=== PATIENT | male | born 1995 | race Caucasian/White ===

== ENCOUNTER → 2019-03-04 | Day surgery (SDC) | payer OTHER ==
[~2019-03-04] MED LIST: FENTANYL CITRATE/PF 100MCG/2 ML INJ ONE; LIDOCAINE HCL 2% LOCAL INJ 5 ML SDV VIAL INJ ONE; MIDAZOLAM HCL 2 MG/2 ML VIAL ONE; OMEPRAZOLE20 MG PO; PROPOFOL IV EMULSION 10 MG/ML 20 ML VIAL ONE; SUCRALFATE1 GM PO
--- OUTSIDE RECORDS SUMMARY | 2019-03-04 14:12 | XMS REPORT ---
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 Allergies, Adverse Reactions, Alerts Allergy Name Allergy Type Status Severity Reaction(s) Onset Date Inactive Date Treating Clinician Comments No Known Allergies DA Active U 2019-02-25 00:00:00 No Known Contrast Allergies DA Active U 2008-07-19 00:00:00 No Known Drug Allergies DA Active U 2008-07-19 00:00:00 No Known Food Allergies DA Active U 2008-07-19 00:00:00 No Known Other Allergies DA Active U 2008-07-19 00:00:00 Medications This patient has no known medications. Results Test Description Test Time Test Comments Text Results Atomic Results Result Comments URINALYSIS COMPLETE 2019-02-25 19:54:00 UA COLOR (test code=COLU) LIGHT YELLOW YELLOW UA APPEARANCE (test code=APPU) CLEAR CLEAR UA GLUCOSE DIPSTICK (test code=DGLUU) norm mg/dL NEGATIVE UA BILIRUBIN DIPSTICK (test code=BILU) NEGATIVE mg/dL NEGATIVE UA KETONE DIPSTICK (test code=KETU) neg mg/dL NEGATIVE UA SPECIFIC GRAVITY (test code=SGU) 1.005 1.001-1.035 UA BLOOD DIPSTICK (test code=TIERA) neg Juan/uL NEGATIVE UA PH DIPSTICK (test code=ALMA) 8.0 5.0-8.0 UA PROTEIN DIPSTICK (test code=PROU) neg mg/dL Neg-15 UA UROBILINIOGEN DIPSTICK (test code=URO) norm mg/dL 0.0-0.2 UA NITRITE DIPSTICK (test code=DIANE) NEGATIVE NEGATIVE UA LEUKOCYTE ESTERASE DIPSTICK (test code=LEUU) neg uL NEGATIVE UA WBC (test code=WBCU) NONE SEEN per HPF 0-5 UA RBC (test code=RBCU) NONE SEEN per HPF 0-5 UA EPITHELIAL CELLS (test code=EPIU) Rare (0-1/hpf) per HPF Few UA BACTERIA (test code=BACU) TRACE per HPF NONE Urine Source? Clean [id number] 19:45:00* Test Item Value Reference Range Comments D-DIMER (test code=DDIMER) < 100 ng/ml < 600 ADD [id number] 19:45:00* Test Item Value Reference Range Comments MAGNESIUM (test code=MAG) 2.1 mg/dL 1.6-2.3 ADD [id number] 19:45:00* Test Item Value Reference Range Comments TROPONIN-I (test code=TROPI) <0.015 ng/mL 0.00-0.056 ADD ON- XR CHEST 1 [id number] 19:39:00 Name: BENEDICTBRYCE A [facility] : 1995 Age/S:23 /M [address] [facility] Unit#:[id number] Loc: [place] [address] Phys: Abdias Rebollar MD Dis Date: PHONE #: [phone] Status: REG ER FAX #: [phone] Exam Date: 02/25/2019 Reason: CP EXAMS: CPT CODE: [id number] XR CHEST 1 V [id number] REASON FOR EXAM: CP EXAM ORDER DATE: 02/25/2019 7:24 PM Ordering MGloria: Abdias Rebollar MD PROCEDURE: - XR CHEST 1 V COMPARISON: FINDINGS: Portable AP frontal view of the chest obtained at 7:36 PM shows clear lungs without evidence of consolidation. There is no evidence of effusion. The heart size is within normal limits. Pulmonary vasculatures are unremarkable. IMPRESSION: No active disease. at 1941 Reported and signed by: Keshav Nunez M.D. CC: Jj Hanna DO; Abdias Rebollar MD Technologist: JANE MORA RT(R),RDMS,CT Trnscrpt Data: 02/25/2019 (193) t.BALDOMERO R.VTL Orig Print D/T: S: 02/25/2019 (1941) PAGE 1 Signed Report COMPREHENSIVE METABOLIC [id number] 19:36:00* Test Item Value Reference Range Comments SODIUM (test code=NA) 139 mmol/L 136-145 POTASSIUM (test code=K) 3.8 mmol/L 3.5-5.1 CHLORIDE (test code=CL) 102 mmol/L 101-109 CARBON DIOXIDE (test code=CO2) 26.9 mmol/L 21-32 ANION GAP (test code=GAP) 14 mmol/L 10-20 GLUCOSE (test code=GLU) 104 mg/dL 74-106 BLOOD UREA NITROGEN (test code=BUN) 14 mg/dL 3-21 CREATININE (test code=CREAT) 0.90 mg/dL 0.55-1.3 BUN/CREATININE RATIO (test code=BUN/CREA) 15.6 10-20 TOTAL PROTEIN (test code=PROT) 8.4 g/dL 6.5-8.4 ALBUMIN (test code=ALB) 5.1 g/dL 3.4-4.8 GLOBULIN (test code=GLOB) 3.3 G/DL 1-10 ALBUMIN/GLOBULIN RATIO (test code=A/G) 1.55 RATIO 0.75-1.50 CALCIUM (test code=CA) 9.3 mg/dL 8.4-10.2 BILIRUBIN TOTAL (test code=BILT) 0.90 mg/dL 0.0-1.0 SGOT/AST (test code=AST) 18 U/L 6-32 SGPT/ALT (test code=ALT) 29 U/L 12-78 Note: Change in REFERENCE RANGE due to new reagent method. ALKALINE PHOSPHATASE TOTAL (test code=ALKP) 66 U/L 38-126 [id number] 19:36:00* Test Item Value Reference Range Comments LIPASE (test code=LIP) 143 U/L 128-270 COMPREHENSIVE METABOLIC [id number] 19:23:00* Test Item Value Reference Range Comments SODIUM (test code=NA) 139 mmol/L 136-145 POTASSIUM (test code=K) 3.8 mmol/L 3.5-5.1 CHLORIDE (test code=CL) 102 mmol/L 101-109 CARBON DIOXIDE (test code=CO2) mmol/L 21-32 ANION GAP (test code=GAP) mmol/L 10-20 GLUCOSE (test code=GLU) 104 mg/dL 74-106 BLOOD UREA NITROGEN (test code=BUN) 14 mg/dL 3-21 CREATININE (test code=CREAT) 0.90 mg/dL 0.55-1.3 BUN/CREATININE RATIO (test code=BUN/CREA) 15.6 10-20 TOTAL PROTEIN (test code=PROT) 8.4 g/dL 6.5-8.4 ALBUMIN (test code=ALB) 5.1 g/dL 3.4-4.8 GLOBULIN (test code=GLOB) 3.3 G/DL 1-10 ALBUMIN/GLOBULIN RATIO (test code=A/G) 1.55 RATIO 0.75-1.50 CALCIUM (test code=CA) 9.3 mg/dL 8.4-10.2 BILIRUBIN TOTAL (test code=BILT) 0.90 mg/dL 0.0-1.0 SGOT/AST (test code=AST) 18 U/L 6-32 SGPT/ALT (test code=ALT) 29 U/L 12-78 Note: Change in REFERENCE RANGE due to new reagent method. ALKALINE PHOSPHATASE TOTAL (test code=ALKP) 66 U/L 38-126 [id number] 19:23:00* Test Item Value Reference Range Comments LIPASE (test code=LIP) 143 U/L 128-270 CBC W/AUTO [id number] 19:12:00* Test Item Value Reference Range Comments WHITE BLOOD CELL (test code=WBC) 7.4 K/mm3 4.5-12.5 RED BLOOD CELL (test code=RBC) 4.89 mill/mm3 4.0-5.8 HEMOGLOBIN (test code=HGB) 15.5 gram/dL 13.0-17.5 HEMATOCRIT (test code=HCT) 43.2 % 42.0-52.0 MEAN CELL VOLUME (test code=MCV) 88.3 fL 80-98 MEAN CELL HGB (test code=MCH) 31.7 picogram 27.0-33.0 MEAN CELL HGB CONCETRATION (test code=MCHC) 35.9 gram/dL 33.0-36.0 RED CELL DISTRIBUTION WIDTH (test code=RDW) 11.7 % 11.6-16.2 RED CELL DISTRIBUTION WIDTH SD (test code=RDW-SD) 38.5 fL 37.0-51.0 PLATELET COUNT (test code=PLT) 240 K/mm3 150-450 MEAN PLATELET VOLUME (test code=MPV) 10.1 fL 6.7-11.0 NEUTROPHIL % (test code=NT%) 69.9 % 39.0-69.0 LYMPHOCYTE % (test code=LY%) 23.8 % 25.0-55.0 MONOCYTE % (test code=MO%) 5.8 % 0.0-10.0 EOSINOPHIL % (test code=EO%) 0.1 % 0.0-5.0 BASOPHIL % (test code=BA%) 0.3 % 0.0-1.0 NEUTROPHIL # (test code=NT#) 5.16 K/mm3 1.8-7.7 LYMPHOCYTE # (test code=LY#) 1.76 K/mm3 1.0-5.0 MONOCYTE # (test code=MO#) 0.43 K/mm3 0-0.8 EOSINOPHIL # (test code=EO#) 0.01 K/mm3 0.0-0.5 BASOPHIL # (test code=BA#) 0.02 K/mm3 0.0-0.2 MANUAL DIFF REQUIRED (test code=MDIFF) NO
[2019-03-04 15:55] VITALS: BP 118/66
--- NOTE | 2019-03-04 16:05 | Operative Report ---
DATE OF PROCEDURE: 03/04/2019 SURGEON: Armand Smith MD PROCEDURE: Esophagogastroduodenoscopy with biopsies. INDICATIONS FOR EGD: Upper abdominal pain, nausea, and bloating. MEDICATION: The patient was done under MAC, please see anesthesiologist's note. PROCEDURE IN DETAIL: With the patient in left lateral decubitus position, a flexible fiberoptic Olympus gastroscope was introduced into the esophagus under direct visualization without any difficulty. There was some patchy erythema noted in the distal esophagus. A minute tongue of velvety red mucosa was noted to extend proximally from the GE junction and biopsies were obtained to rule out Luis's. The scope was then advanced with ease into the stomach, mucosa overlying the antrum and the body revealed some diffuse erythema and low-grade to moderate edema and biopsies were obtained, sent to stain for H pylori. Minute nodule was noted in the upper body and that was biopsied. Pylorus was of normal contour and shape, it was intubated with ease and the scope was advanced all the way to the second portion of the duodenum. The scope was then withdrawn slowly, mucosa overlying the proximal second portion and duodenal bulb appeared to be within normal limits. Biopsies were obtained to rule out sprue. The scope was then withdrawn back into the stomach and retroflexed, mucosa overlying the fundus and the cardia appeared to be within normal limits. The scope was then straightened out, it was subsequently withdrawn. The patient tolerated the procedure well. IMPRESSION: 1. Distal esophagitis, mild. 2. Rule out Luis esophagus. 3. Gastritis, biopsied, biopsies sent to stain for Helicobacter pylori. 4. Minute nodule, upper body, stomach, biopsied. 5. Rule out sprue. PLAN: Follow up histology. Initiate omeprazole 40 mg one p.o. a.c. b.i.d. Armand Smith MD [facility] [place] /[id number] cc: Jj Hanna DO
== END | disposition home or self-care (01) ==
LOC: OR 14:10
PROVIDERS: ATTEND Internal Medicine Gastroenterology
DX: R10.10 Upper abdominal pain, unspecified (principal); R14.0 Abdominal distension (gaseous); K21.0 Gastro-esophageal reflux disease with esophagitis; K29.50 Unspecified chronic gastritis without bleeding; R19.09 Other intra-abdominal and pelvic swelling, mass and lump; R11.0 Nausea
CPT/HCPCS: 43239; J2001; J2250; J2704

== ENCOUNTER → 2019-03-18 | Outpatient (CLI) | payer OTHER ==
[~2019-03-18] MED LIST changes: -FENTANYL CITRATE/PF 100MCG/2 ML INJ ONE; +IOPAMIDOL 370 MG/ML 200 ML INFUS..BTL INJ ONE; -LIDOCAINE HCL 2% LOCAL INJ 5 ML SDV VIAL INJ ONE; -MIDAZOLAM HCL 2 MG/2 ML VIAL ONE; -PROPOFOL IV EMULSION 10 MG/ML 20 ML VIAL ONE; +SODIUM CHLORIDE 0.9% 50ML 50 ML ONE
--- NOTE | 2019-03-18 17:24 | Diagnostic Imaging Report ---
EXAMINATION: CT of the abdomen and pelvis with contrast. TECHNIQUE: Helical CT images of the abdomen and pelvis were performed from the lung bases to the lesser trochanters after the intravenous administration of 100 cc of Omnipaque 300 and the oral administration of none. Coronal and sagittal reformatted images were obtained.Dose modulation, iterative reconstruction, and/or weight based adjustment of the mA/kV was utilized to reduce the radiation dose to as low as reasonably achievable. COMPARISON: None. CLINICAL HISTORY:Pain DISCUSSION: ABDOMEN/PELVIS: LOWER THORAX:Unremarkable. HEPATOBILIARY: No focal hepatic lesions. No intra-or extrahepatic biliary ductal dilation. The gallbladder is normal. SPLEEN: No splenomegaly. PANCREAS: No focal masses or ductal dilatation. ADRENALS: No adrenal nodules. KIDNEYS/URETERS: No hydronephrosis, stones, or solid mass lesions. PELVIC ORGANS/BLADDER: The bladder is normal. PERITONEUM/RETROPERITONEUM: No free air or fluid. LYMPH NODES: No intra-abdominal, retroperitoneal, pelvic or inguinal lymphadenopathy. VESSELS: The celiac trunk,superior and inferior mesenteric and bilateral renal arteries are patent The portal, superior mesenteric and splenic veins are patent. GI TRACT: No distention or wall thickening. Appendix is normal. BONES AND SOFT TISSUE: No bony destructive lesions. No soft tissue abnormalities. IMPRESSION: No acute CT finding. Signed by: Dr. Jj Ponce M.D. on 03/18/2019 5:21 PM
== END ==
LOC: CT 15:45
PROVIDERS: ATTEND Internal Medicine Gastroenterology
DX: R10.30 Lower abdominal pain, unspecified (principal)
CPT/HCPCS: 74177; Q9967

== ENCOUNTER → 2020-02-13 | Outpatient (CLI) | payer OTHER ==
[~2020-02-13] MED LIST changes: -IOPAMIDOL 370 MG/ML 200 ML INFUS..BTL INJ ONE; -SODIUM CHLORIDE 0.9% 50ML 50 ML ONE
--- NOTE | 2020-02-13 16:07 | Diagnostic Imaging Report ---
Exam: KUB - 2 views Indication: Constipation Comparison: CT abdomen and pelvis of 03/18/2019 Findings: Nonobstructive bowel gas pattern. No free air. Normal stool burden throughout the colon. No acute osseous injury. Visualized portions of the lung bases are clear. Impression: No acute radiographic abnormality. Signed by: Beau Read MD on 02/13/2020 4:04 PM
== END ==
LOC: RAD 15:28
PROVIDERS: ATTEND Internal Medicine Gastroenterology
DX: K59.00 Constipation, unspecified (principal)
CPT/HCPCS: 74018

== ENCOUNTER → 2020-06-13 | Day surgery (SDC) | payer OTHER ==
[~2020-06-13] MED LIST changes: +FENTANYL CITRATE/PF 100MCG/2 ML INJ ONE; +MIDAZOLAM HCL 2 MG/2 ML VIAL ONE; +PANTOPRAZOLE 40 MG 10ML VIAL ONE; +PROPOFOL IV EMULSION 10 MG/ML 20 ML VIAL ONE
[2020-06-13 16:16] VITALS: BP 123/82
--- NOTE | 2020-06-13 17:09 | Operative Report ---
DATE OF PROCEDURE: 06/13/2020 SURGEON: Armand Smith MD PROCEDURE: EGD with biopsies. INDICATIONS FOR EGD: Upper abdominal pain, nausea, dark stools. MEDICATIONS: The patient was done under MAC, please see anesthesiologist's note. PROCEDURE IN DETAIL: With the patient in left lateral decubitus position, a flexible fiberoptic Olympus gastroscope was introduced into the esophagus under direct visualization without any difficulty. There was some patchy erythema noted in distal esophagus. A minute tongue of velvety red mucosa was noted to extend proximally from the GE junction; biopsies were obtained to rule out Luis. The scope was then advanced with ease into the stomach, and mucosa overlying the antrum and the body revealed some patchy erythema and low-grade to moderate edema, and biopsies were obtained, and sent to stain for H. pylori. Pylorus was of normal contour and shape, it was intubated with ease and the scope was advanced all the way to the second portion of the duodenum. Biopsies were obtained from the proximal second portion and duodenal bulb to rule out sprue. The scope was then withdrawn back into the stomach and retroflexed, mucosa overlying the fundus and cardia appeared to be within normal limits. The scope was then straightened out, it was subsequently withdrawn. The patient tolerated the procedure well. IMPRESSION: 1. Distal esophagitis, mild. 2. Rule out Luis. 3. Gastritis, biopsied, biopsies sent to stain for H. pylori. PLAN: 1. Follow up histology. 2. Initiate Protonix 40 mg one p.o. q.a.m. before meals. Armand Smith MD [facility] [place] [place] /[id number] cc: Ky Hanna DO
== END | disposition home or self-care (01) ==
LOC: OR 12:59
PROVIDERS: ATTEND Internal Medicine Gastroenterology
DX: K29.50 Unspecified chronic gastritis without bleeding (principal); K20.9 Esophagitis, unspecified; K22.8 Other specified diseases of esophagus; R19.5 Other fecal abnormalities; Z01.812 Encounter for preprocedural laboratory examination; Z11.59 Encounter for screening for other viral diseases
CPT/HCPCS: 43239; C9113; J2250; J2704; J3010; U0002

== ENCOUNTER → 2020-06-25 | Day surgery (SDC) | payer OTHER ==
[~2020-06-25] MED LIST changes: +GLYCOPYRROLATE INJ 0.2 MG/ML VIAL ONE; +HYOSCYAMINE 0.125 MG TAB ONE; +LIDOCAINE HCL 2% LOCAL INJ 5 ML SDV VIAL INJ ONE; -PANTOPRAZOLE 40 MG 10ML VIAL ONE
[2020-06-25 15:25] VITALS: BP 135/92
--- NOTE | 2020-06-25 19:37 | Operative Report ---
DATE OF PROCEDURE: 06/25/2020 SURGEON: Armand Smith MD PROCEDURE: Colonoscopy with biopsies. INDICATIONS FOR PROCEDURES: Severe constipation, lower abdominal pain. MEDICATIONS: The patient was done under MAC, please see anesthesiologist's note. PROCEDURE IN DETAIL: With the patient in left lateral decubitus position, a flexible fiberoptic Olympus colonoscope was inserted into the rectum with ease and advanced all the way to the cecum. There were some moderate amount of retained fecal material in the cecum. The ileocecal valve was intubated and mucosa overlying the terminal ileum appeared to be within normal limits. The scope was then withdrawn back into the colon. It was then withdrawn slowly and mucosa overlying the ascending and the transverse grossly appeared to be within normal limits. There was some patchy inflammatory changes noted in the distal descending and the sigmoid colon as well as the rectum, and biopsies were obtained. The scope was then retroflexed into the distal rectum and the area around the dentate line appeared to be within normal limits. The scope was then straightened out, it was subsequently withdrawn. The patient tolerated the procedure well. IMPRESSION: 1. Suboptimal prep, primarily right colon. 2. Mild patchy inflammatory changes, left colon, biopsies obtained. 3. Proctitis, biopsies obtained. PLAN: 1. Follow up histology. 2. Initiate high-fiber, low-fat diet. 3. Increase water intake to at least 64 ounces of water daily. 4. Check TSH. 5. Initiate Linzess 145 mcg one p.o. q.a.m. a.c. Armand Smith MD [facility] [place] /[id number] cc: Dr Curtis Diaz
== END | disposition home or self-care (01) ==
LOC: OR 13:15
PROVIDERS: ATTEND Internal Medicine Gastroenterology
DX: K59.00 Constipation, unspecified (principal); K52.9 Noninfective gastroenteritis and colitis, unspecified; K62.89 Other specified diseases of anus and rectum; K21.9 Gastro-esophageal reflux disease without esophagitis; R42 Dizziness and giddiness; R07.9 Chest pain, unspecified; Z01.812 Encounter for preprocedural laboratory examination; Z11.59 Encounter for screening for other viral diseases
CPT/HCPCS: 36415; 45380; 84443; J2001; J2250; J2704; J3010; U0002; 45378